=== PATIENT | male | born 1955 | race Caucasian/White ===

== ENCOUNTER 2022-01-02 19:47 | Emergency (ER) | payer MEDICARE ==
[~2022-01-02] VITALS: Ht 185.4 cm; Wt 104.0 kg
[~2022-01-02 19:47] MED LIST: CYCLOBENZAPR10 MG PO; GLIPIZIDE ER10 M1 PO; MELOXICAM7.5 MG PO; VICODIN ES1 TA1 PO; VICTOZA18 MG/3 ML SC
[2022-01-02] MEDS ORDERED: EPIPEN 2-P0.3 MG/0.3 IM (22:01)
[2022-01-02] MEDS ORDERED: BENADRYL25 M1 PO (22:01)
[2022-01-02] MEDS ORDERED: PREDNISONE20 MG PO (22:01)
[2022-01-02 22:32] VITALS: BP 122/57
[2022-01-03] MEDS ORDERED: LISINOPRIL2.5 MG PO (06:06)
== END 2022-01-02 22:32 | disposition home or self-care (01) ==
LOC: ED 19:47
DX: T78.3XXA Angioneurotic edema, initial encounter (principal); T63.461A Toxic effect of venom of wasps, accidental (unintentional), initial encounter; Y92.007 Garden or yard of unspecified non-institutional (private) residence as the place of occurrence of the external cause

== ENCOUNTER 2022-04-16 09:09 | Emergency (ER) | payer MEDICARE ==
[~2022-04-16] VITALS: Ht 180.3 cm; Wt 90.7 kg
[~2022-04-16 09:09] MED LIST changes: +BENADRYL25 M1 PO; +EPIPEN 2-P0.3 MG/0.3 IM; +LISINOPRIL2.5 MG PO; +PREDNISONE20 MG PO
[2022-04-16 09:14] VITALS: BP 160/90
[2022-04-16 09:17] VITALS: BP 155/72
[2022-04-16] MEDS ORDERED: VOLTAREN1%GEL TOP (09:40)
[2022-04-16 10:28] VITALS: BP 155/72
== END 2022-04-16 10:36 | disposition home or self-care (01) ==
LOC: ED 09:09
DX: M25.532 Pain in left wrist (principal)

== ENCOUNTER 2022-08-27 10:32 | Emergency (ER) | payer MEDICARE ==
[~2022-08-27] VITALS: Ht 180.3 cm; Wt 91.0 kg
[2022-08-27] VITALS (9 sets, daily range): BP systolic 118–150; BP diastolic 62–82
[~2022-08-27 10:32] MED LIST changes: +VOLTAREN1%GEL TOP
[2022-08-27] MEDS ORDERED: PREDNISONE50 MG PO (13:03)
[2022-08-27] MEDS ORDERED: EPIPEN 2-P0.3 MG/0.3 IM (13:03)
[2022-08-27] MEDS ORDERED: ALLERGY RELF10 M3 PO (15:32)
== END 2022-08-27 16:06 | disposition home or self-care (01) ==
LOC: ED 10:32
DX: T63.461A Toxic effect of venom of wasps, accidental (unintentional), initial encounter (principal); R42 Dizziness and giddiness

== ENCOUNTER 2023-05-15 08:16 | Emergency (ER) | payer MEDICARE ==
[~2023-05-15] VITALS: Ht 180.3 cm; Wt 62.5 kg
[2023-05-15] VITALS (70 sets, daily range): BP systolic 62–138; BP diastolic 36–103
[~2023-05-15 08:16] MED LIST changes: +ALLERGY RELF10 M3 PO; +PREDNISONE50 MG PO
[2023-05-15] MEDS ORDERED: SODIUM CHLORIDE 0.9% 1,000 ML IV ONE ×2 (08:30→09:35)
[2023-05-15 09:16] LABS: HEMATOCRIT 25.7 % (39.0-50.0); HEMOGLOBIN 7.6 g/dl (14.0-18.0); IMMATURE GRANULOCYTES 0.5 % (0.0-5.0); LYMPH% 3.4 % (15-41); MEAN CELL VOLUME 95.5 fL CALC (80.0-100.0); MEAN CORPUSCULAR HGB 28.3 pG CALC (26.0-32.0); MEAN CORPUSCULAR HGB CONC 29.6 g/dL CAL (32.0-36.0); MONO% 5.9 % (2-13); NEUT# 18.46 thou/uL (1.82-7.42); NEUT% 90.2 % (42-76); RED BLOOD COUNT 2.69 mill/uL (4.70-6.10); RED CELL DISTRI WIDTH 15.8 % (11.5-15.5)
[2023-05-15] MEDS ORDERED: ONDANSETRON HCl 4 MG/2 ML SDV IV ONE (09:20)
[2023-05-15] MEDS ORDERED: HYDROmorphone HCL 2 MG/AMP IV ONE ×3 (09:20→14:05)
[2023-05-15] MEDS ORDERED: PIPERACILLIN Sodium-Tazobactam 3.375 GM in SODIUM CHLORIDE 0.9% 100 ML IV ONE (09:35)
[2023-05-15 09:37] LABS: ALBUMIN 3.1 g/dL (3.2-5.0); ALKALINE PHOSPHATASE 83 u/l (38-126); ANION GAP 14 (6-22 (CALC)); BILIRUBIN, TOTAL 0.2 mg/dL (0.2-1.3); BUN 19 mg/dL (8-23); BUN/CREATININE RATIO 19 (12-20 (CALC)); CARBON DIOXIDE 27 mmol/l (22-30); CHLORIDE 97 mmol/l (95-108); GFR FOR AFR.AMER. > 60 ML/MIN (>=60 (CALC)); GFR OTHER RACES > 60 ML/MIN (>=60 (CALC)); POTASSIUM 4.8 mmol/l (3.5-5.1); SGOT/AST 250 u/l (19-48); SODIUM 134 mmol/l (137-146)
[2023-05-15] MEDS ORDERED: VANCOMYCIN HCL 1 GM in SODIUM CHLORIDE 0.9% 250 ML IV ONE (09:40)
[2023-05-15] MEDS ORDERED: SODIUM CHLORIDE 0.9% 500 ML IV ONE (10:10)
[2023-05-15] MEDS ORDERED: NOREPINEPHRINE BITARTRATE 4 MG in DEXTROSE 5% 250 ML IV ONE (10:10)
[2023-05-15] MEDS ORDERED: NOREPINEPHRINE BITARTRATE 4 MG/VIAL SDV ONE (10:22)
== END 2023-05-15 14:26 | disposition short-term general hospital (02) ==
LOC: ED 08:16
PROVIDERS: Emergency Medicine
PROC: 3E033XZ Introduction of Vasopressor into Peripheral Vein, Percutaneous Approach (ICD-10-PCS; principal; 2023-05-15)
DX: A41.9 Sepsis, unspecified organism (principal); R65.21 Severe sepsis with septic shock; I21.4 Non-ST elevation (NSTEMI) myocardial infarction; I10 Essential (primary) hypertension; E11.9 Type 2 diabetes mellitus without complications; C20 Malignant neoplasm of rectum; I25.2 Old myocardial infarction; Z79.60 Long term (current) use of unspecified immunomodulators and immunosuppressants; Z85.819 Personal history of malignant neoplasm of unspecified site of lip, oral cavity, and pharynx
CPT/HCPCS: Q9967